=== PATIENT | male | born 2000 | race Caucasian/White ===

== ENCOUNTER 2022-10-30 17:01 | Emergency (ER) | payer MEDICAID ==
[2022-10-30] MEDS ORDERED: Sodium Chloride 0.9% 10 ML Syringe FLUSH PRN (17:10)
[2022-10-30 17:58] LABS: PTT,PARTIAL THROMBOPLSTIN TIME 26.2 SEC (20.5-30.9)
[2022-10-30 18:04] LABS: CHLORIDE,CL 102 mmol/L (98-107); SODIUM,NA 140 mmol/L (136-145)
[2022-10-30 18:17] LABS: ESTIMATED GFR 111 mL/min (>=60)
== END 2022-10-30 19:45 | disposition other institution (70) ==
LOC: VM.ED 17:01
DX: R07.89 Other chest pain (principal)
CPT/HCPCS: 71045; 80053; 83735; 84443; 85025; 85379; 85610; 85730; 86140; 93005; 93010; 99284; 99285; J3490